=== PATIENT | male | born 1950 | race Caucasian/White ===

== ENCOUNTER 2020-08-13 08:25 | Inpatient (IN) | payer MEDICARE, OTHER ==
[2020-08-11 10:43] LABS: BASOPHILS % (AUTO) 1 % (0-1); EOSINOPHILS % (AUTO) 3 % (1-7); LYMPHOCYTES % (AUTO) 33 % (22-44); MEAN CORPUSCULAR HEMOGLOBIN 29.9 pg (27.5-34.5); MEAN CORPUSCULAR HGB CONC 33.7 g/dL (33.2-36.2); MEAN PLATELET VOLUME 7.9 fL (7.4-10.4); MONOCYTES % (AUTO) 9 % (2-9); NEUTROPHILS % (AUTO) 54 % (42-75); PLATELET COUNT 310 x10^3/uL (130-400); RED CELL DISTRIBUTION WIDTH 13.6 % (9.4-14.8)
[2020-08-11 10:44] LABS: MD NO
[~2020-08-13] VITALS: Ht 182.9 cm; Wt 93.0 kg
[~2020-08-13 08:25] MED LIST: AMLO-211 PO; BACITRACIN 50,000 UNIT ONE; BUPIVACAINE/PF 0.5% ONE; EPINEPHRINE 1 MG/ML, 1ML ONE; LISI40TA9 PO; METF10007 PO
[2020-08-13] MEDS ORDERED: FENTANYL PF 250 MCG/5ML ONE ×2 (08:54→11:32)
[2020-08-13] MEDS ORDERED: MIDAZOLAM 1 MG/ML, 2ML ONE (08:54)
[2020-08-13] MEDS ORDERED: AMLO-211 PO (09:10)
[2020-08-13] MEDS ORDERED: LISI-170 PO (09:10)
[2020-08-13] MEDS ORDERED: METF10007 PO (09:10)
[2020-08-13] MEDS ORDERED: CHLORHEXIDINE 15 ML UDC MM ONE (09:30)
[2020-08-13] MEDS ORDERED: LACTATED RINGERS 1,000 ML IV SCH (09:30)
[2020-08-13 09:49] LABS: BASOPHILS % (AUTO) 1 % (0-1); EOSINOPHILS % (AUTO) 3 % (1-7); LYMPHOCYTES % (AUTO) 34 % (22-44); MEAN CORPUSCULAR HEMOGLOBIN 30.2 pg (27.5-34.5); MEAN CORPUSCULAR HGB CONC 33.7 g/dL (33.2-36.2); MEAN PLATELET VOLUME 7.9 fL (7.4-10.4); MONOCYTES % (AUTO) 7 % (2-9); NEUTROPHILS % (AUTO) 55 % (42-75); PLATELET COUNT 307 x10^3/uL (130-400); RED BLOOD COUNT 4.95 x10^6/uL (4.38-5.82); RED CELL DISTRIBUTION WIDTH 13.7 % (9.4-14.8)
[2020-08-13 09:50] LABS: MD NO
[2020-08-13] MEDS ORDERED: SCOPOLAMINE 1MG PATCH TD STA (10:48)
[2020-08-13] MEDS ORDERED: SCOPOLAMINE 1MG PATCH TD ONE ×2 (10:50→11:00)
[2020-08-13] MEDS ORDERED: METOCLOPRAMIDE 5 MG/ML, 2ML IV PRN (12:00)
[2020-08-13] MEDS ORDERED: DIAZEPAM 5 MG/ML, 2ML IV PRN ×2 (12:00)
[2020-08-13] MEDS ORDERED: LABETALOL 5MG/ML, 20ML IV PRN (12:00)
[2020-08-13] MEDS ORDERED: ONDANSETRON 2MG/ML, 2ML IVPush PRN ×2 (12:00→13:30)
[2020-08-13] MEDS ORDERED: OXYcodone 5 MG/5 ML ORAL.SOL UDC PO PRN (12:00)
[2020-08-13] MEDS ORDERED: MEPERIDINE/PF 25MG/0.5ML IVPush PRN (12:00)
[2020-08-13] MEDS ORDERED: hydrALAzine 20 MG/ML, 1ML IV PRN (12:00)
[2020-08-13] MEDS ORDERED: KETOROLAC 30 MG/1 ML IV PRN (12:00)
[2020-08-13] MEDS ORDERED: HYDROmorphone 1 MG/ML, 1ML INJ IV PRN (12:00)
[2020-08-13] MEDS ORDERED: ALBUTEROL SULFATE 2.5 MG/3 ML NPPB PRN (12:00)
[2020-08-13] MEDS ORDERED: SENNA/DOCUSATE TABLET PO PRN (13:30)
[2020-08-13] MEDS ORDERED: INSULIN REGULAR 100 UNITS/ML, 3ML VIAL SQ-INSULIN PRN (13:30)
[2020-08-13] MEDS ORDERED: CYCLOBENZAPRINE 10 MG TABLET PO PRN (13:30)
[2020-08-13] MEDS ORDERED: DIPHENHYDRAMINE 50 MG/ML, 1ML IVPush PRN (13:30)
[2020-08-13] MEDS ORDERED: HYDROmorphone 2MG TABLET PO PRN (13:30)
[2020-08-13] MEDS ORDERED: ACETAMINOPHEN 325 MG TABLET PO PRN (13:30)
[2020-08-13] MEDS ORDERED: PHARMACY MAY ADJ FOR RENAL FX MC PRN (13:30)
[2020-08-13] MEDS ORDERED: PROMETHAZINE 25 MG/ML, 1ML IM PRN (13:30)
[2020-08-13] MEDS ORDERED: LABETALOL 5MG/ML, 20ML IVPush PRN (13:30)
[2020-08-13] MEDS ORDERED: HYDROmorphone 1 MG/ML, 1ML INJ IVPush PRN (13:30)
[2020-08-13] MEDS ORDERED: MAGNESIUM HYDROXIDE 8%, 30ML UDC PO PRN (13:30)
[2020-08-13] MEDS: PROMETHAZINE 25 MG/ML, 1ML IV PRN ×2 (13:40→13:55)
[2020-08-13] MEDS ORDERED: PROMETHAZINE 25 MG/ML, 1ML ONE (13:45)
[2020-08-13] MEDS ORDERED: FENTANYL PF 100 MCG/2ML ONE (13:45)
[2020-08-13] MEDS ORDERED: ALBUTEROL HFA 90 MCG/SPRAY INH PRN (14:00)
[2020-08-13] MEDS: FENTANYL PF 100 MCG/2ML IV PRN ×2 (14:15→14:20)
[2020-08-13] MEDS ORDERED: PROPOFOL 10 MG/ML, 50ML ONE (16:30)
[2020-08-13] MEDS ORDERED: CEFAZOLIN 1,000 MG ONE (16:30)
[2020-08-13] MEDS ORDERED: SUCCINYLCHOLINE 20 MG/ML, 10ML ONE (16:30)
[2020-08-13] MEDS ORDERED: ONDANSETRON 2MG/ML, 2ML ONE (16:30)
[2020-08-13] MEDS ORDERED: ROCURONIUM 10MG/ML,5ML ONE (16:30)
[2020-08-13] MEDS ORDERED: DEXAMETHASONE 4 MG/ML, 1ML ONE (16:30)
[2020-08-13] MEDS: NS + 20MEQ KCL 1,000 ML IV SCH (16:44)
[2020-08-13 19:18] VITALS: BP 153/84
[2020-08-13] MEDS: metFORMIN 500 MG TABLET PO SCH (20:21)
[2020-08-13] MEDS: CEFAZOLIN PMX 1GM/50ML 50 ML IVPB SCH (20:21)
[2020-08-13] MEDS: SODIUM CHLORIDE FLUSH 10ML SYR IVF SCH (20:22)
[2020-08-13] MEDS ORDERED: LISINOPRIL 20 MG TABLET PO SCH (21:00)
[2020-08-13] MEDS: AMLODIPINE 10 MG TAB PO SCH (22:16)
[2020-08-13] MEDS: INSULIN REGULAR 100 UNITS/ML, 3ML VIAL SQ-INSULIN SCH (23:27)
[2020-08-14 00:11] VITALS: BP 129/67
[2020-08-14] MEDS: CEFAZOLIN PMX 1GM/50ML 50 ML IVPB SCH (04:55)
[2020-08-14] MEDS: NS + 20MEQ KCL 1,000 ML IV SCH ×2 (05:53→19:30)
[2020-08-14] MEDS: INSULIN REGULAR 100 UNITS/ML, 3ML VIAL SQ-INSULIN SCH ×4 (07:00→21:32)
[2020-08-14 07:30] VITALS: BP 136/85
[2020-08-14] MEDS ORDERED: AMLODIPINE 10 MG TAB PO SCH (09:00)
[2020-08-14] MEDS: SODIUM CHLORIDE FLUSH 10ML SYR IVF SCH ×3 (09:00→21:33)
[2020-08-14] MEDS: metFORMIN 500 MG TABLET PO SCH ×2 (09:39→21:33)
[2020-08-14] MEDS: LISINOPRIL 20 MG TABLET PO SCH (09:39)
[2020-08-14 14:20] VITALS: BP 136/85
[2020-08-14 20:02] VITALS: BP 138/68
[2020-08-14] MEDS: AMLODIPINE 10 MG TAB PO SCH (21:33)
[2020-08-15] MEDS: INSULIN REGULAR 100 UNITS/ML, 3ML VIAL SQ-INSULIN SCH (06:30)
[2020-08-15 07:17] VITALS: BP 130/74
[2020-08-15] MEDS ORDERED: CEPH750C9 PO (08:20)
[2020-08-15] MEDS ORDERED: TRAM50TA2 PO (08:20)
[2020-08-15] MEDS ORDERED: METH750T87 PO (08:20)
[2020-08-15] MEDS: NS + 20MEQ KCL 1,000 ML IV SCH (08:47)
[2020-08-15] MEDS: metFORMIN 500 MG TABLET PO SCH (08:47)
[2020-08-15] MEDS: LISINOPRIL 20 MG TABLET PO SCH (08:47)
[2020-08-15] MEDS: SODIUM CHLORIDE FLUSH 10ML SYR IVF SCH (08:48)
== END 2020-08-15 09:26 | disposition home or self-care (01) | DRG 472 ==
LOC: ORIP 08:41 → 4NE 15:04 → MERGE 15:30 → DCLOUNGE 08-15 09:22
PROVIDERS: ADMIT Neurological Surgery; ATTEND Neurological Surgery
PROC: 0RB30ZZ Excision of Cervical Vertebral Disc, Open Approach (ICD-10-PCS; 2020-08-13)
PROC: 4A11X4G Monitoring of Peripheral Nervous Electrical Activity, Intraoperative, External Approach (ICD-10-PCS; 2020-08-13)
PROC: 0RG20A0 Fusion of 2 or more Cervical Vertebral Joints with Interbody Fusion Device, Anterior Approach, Anterior Column, Open Approach (ICD-10-PCS; principal; 2020-08-13 12:30)
DX: M48.02 Spinal stenosis, cervical region (principal); G95.20 Unspecified cord compression; G99.2 Myelopathy in diseases classified elsewhere; M50.30 Other cervical disc degeneration, unspecified cervical region; M47.812 Spondylosis without myelopathy or radiculopathy, cervical region; Z88.8 Allergy status to other drugs, medicaments and biological substances; Z87.891 Personal history of nicotine dependence
CPT/HCPCS: 36415; 72040; 82962; 85025; 86850; 86900; 95938; 95941; C1713; G0378; J0171; J0690; J1100; J1815; J2250; J2405; J2550; J2704; J3010; J3480; C1889; J0330; J7120